=== PATIENT | female | born 1985 | race Caucasian/White ===

== ENCOUNTER 2018-08-09 09:49 | Emergency (ER) | payer BC, OTHER ==
[~2018-08-09] VITALS: Ht 162.6 cm; Wt 68.0 kg
[2018-08-09 09:56] VITALS: BP_SYST 116
--- NOTE | 2018-08-09 09:56 | NUR ---
Patient to ER bed 8 to gown for evaluation. Side rails up. Report given to GRISELDA Carrion.
--- NOTE | 2018-08-09 10:05 | NUR ---
ER Dr. Holland at bedside examining patient.
--- NOTE | 2018-08-09 10:07 | NUR ---
ER Dr. Holland at bedside examining patient.
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
[2018-08-09 11:07] VITALS: BP_SYST 100
--- NOTE | 2018-08-09 11:07 | NUR ---
Patient given written and verbal discharge instructions and verbalizes understanding. ER MD discussed with patient the results and treatment provided. Patient in stable condition. ID arm band removed. Rx of motrin given. Patient educated on pain management and to follow up with PMD. Pain Scale 0/10. Opportunity for questions provided and answered. Medication side effect fact sheet provided.
== END 2018-08-09 11:07 | disposition home or self-care (01) ==
LOC: SED 09:49
DX: S70.01XA Contusion of right hip, initial encounter (principal); V03.99XA Pedestrian with other conveyance injured in collision with car, pick-up truck or van, unspecified whether traffic or nontraffic accident, initial encounter; Y93.89 Activity, other specified; Y92.410 Unspecified street and highway as the place of occurrence of the external cause; Y99.8 Other external cause status
CPT/HCPCS: 73502; 99283